=== PATIENT | female | born 2000 | race American Indian/Alaskan Native ===

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

== ENCOUNTER 2019-09-17 17:03 | Emergency (ER) | payer SELFPAY ==
--- NOTE | 2019-09-17 17:37 | Event Note ---
ED Screening Note Date of service: 09/17/19 Time: 17:34 ED Screening Note: This is a 18 y.o. F. that presents to the ER with urinary frequency, urgency, and pelvic pressure for 1 week. + vaginal discharge This initial assessment/diagnostic orders/clinical plan/treatment(s) is/are subject to change based on patients health status, clinical progression and re- assessment by fellow clinical providers in the ED. Further treatment and workup at subsequent clinical providers discretion. Patient/guardian urged not to elope from the ED as their condition may be serious if not clinically assessed and managed. Initial orders include: UA and test Pelvic exam
[2019-09-17 17:53] VITALS: BP 112/60
[2019-09-17 18:05] LABS: Bacteria,Urine 1+ /HPF (Negative); Bilirubin,Urine NEG (Negative); Blood,Urine NEG (Negative); Color,Urine Yellow (Yellow); Mucus,Urine 1+ /HPF; Urobilinogen,Urine < 2.0 mg/dL (<2.0)
[2019-09-17 18:07] LABS: HCG Qualitative,Urine Negative (Negative)
[2019-09-17] MEDS ORDERED: PHENAZOPYRIDINE 200 MG TAB PO ONE (19:58)
[2019-09-17] MEDS ORDERED: ACETAMINOPHEN 500 MG TAB PO ONE (19:58)
[2019-09-17] MEDS ORDERED: cephALEXin 500 MG CAP PO ONE (19:58)
--- NOTE | 2019-09-17 20:39 | Emergency Department Report ---
ED Female HPI - General Chief complaint: Urogenital-Female Stated complaint: URINE PAIN Time Seen by Provider: 09/17/19 17:34 Source: patient Mode of arrival: Ambulatory Limitations: No Limitations - History of Present Illness Initial comments: Patient is a nulliparous 18-year-old -[place] female with no past medical history who presents to the ED with complaint of acute onset persistent suprapubic pressure, dysuria, urinary frequency and urgency and low back pain for the last 2 weeks worse in the last 2 days. Patient denies vaginal bleeding, vaginal discharge, fever, chills, nausea, vomiting, diarrhea, dizziness, chest pain, abdominal pain, cough or sore throat. MD Complaint: dysuria, pelvic pain (suprapubic pressure; ), other (urinary urgency and frequency) -: Sudden, week(s) (2) Location: suprapubic (pressure) Radiation: non-radiating Severity: severe Severity scale (0 -10): 7 Quality: cramping, burning Consistency: intermittent Improves with: none Worsens with: urination Are you Now?: No Associated Symptoms: denies other symptoms, abdominal pain (suprapubic), loss of appetite, dysuria. denies: vaginal discharge, vaginal bleeding, nausea/vomiting, fever/chills - Related Data Sexually active: Yes : 0 Para: 0 A: 0 Previous Rx's Medication Instructions Recorded Last Taken Type Nitrofurantoin Monohyd/M-Cryst 100 mg PO BID #20 capsule 02/13/18 Unknown Rx [Macrobid 100 mg Capsule] Ibuprofen [Motrin] 600 mg PO Q8H PRN #21 tablet 09/17/19 Unknown Rx Ondansetron [Zofran Odt] 4 mg PO Q6HR PRN #15 tab.rapdis 09/17/19 Unknown Rx Phenazopyridine [Pyridium] 100 mg PO Q8H #21 tab 09/17/19 Unknown Rx cephALEXin [Keflex] 500 mg PO Q8HR #30 cap 09/17/19 Unknown Rx Allergies Allergy/AdvReac Type Severity Reaction Status Date / Time No Known Allergies Allergy Verified 02/13/18 04:41 ED Review of Systems ROS: Stated complaint: URINE PAIN Other details as noted in HPI Constitutional: denies: chills, fever Eyes: denies: eye pain, eye discharge, vision change ENT: denies: ear pain, throat pain Respiratory: denies: cough, shortness of breath, wheezing Cardiovascular: denies: chest pain, palpitations Endocrine: no symptoms reported Gastrointestinal: abdominal pain (suprapubic pressure). denies: nausea, vomiting, diarrhea Genitourinary: urgency, dysuria, frequency. denies: discharge Musculoskeletal: denies: back pain, joint swelling, arthralgia Skin: denies: rash, lesions Neurological: denies: headache, weakness, paresthesias Psychiatric: denies: anxiety, depression Hematological/Lymphatic: denies: easy bleeding, easy bruising ED Past Medical Hx - Past Medical History Previous Medical History?: Yes Hx Asthma: Yes - Surgical History Past Surgical History?: No - Social History Smoking Status: Never Smoker Substance Use Type: None - Medications Home Medications: Home Medications Medication Instructions Recorded Confirmed Last Taken Type Nitrofurantoin Monohyd/M-Cryst 100 mg PO BID #20 capsule 02/13/18 Unknown Rx [Macrobid 100 mg Capsule] Ibuprofen [Motrin] 600 mg PO Q8H PRN #21 tablet 09/17/19 Unknown Rx Ondansetron [Zofran Odt] 4 mg PO Q6HR PRN #15 tab.rapdis 09/17/19 Unknown Rx Phenazopyridine [Pyridium] 100 mg PO Q8H #21 tab 09/17/19 Unknown Rx cephALEXin [Keflex] 500 mg PO Q8HR #30 cap 09/17/19 Unknown Rx ED Physical Exam - General Limitations: No Limitations General appearance: alert, in no apparent distress - Head Head exam: Present: atraumatic, normocephalic, normal inspection - Eye Eye exam: Present: normal appearance, PERRL, EOMI Pupils: Present: normal accommodation - ENT ENT exam: Present: normal exam, normal orophraynx, mucous membranes moist, TM's normal bilaterally, normal external ear exam - Neck Neck exam: Present: normal inspection, full ROM. Absent: tenderness - Respiratory Respiratory exam: Present: normal lung sounds bilaterally. Absent: respiratory distress, wheezes, rales, rhonchi, stridor, chest wall tenderness, decreased breath sounds, prolonged expiratory - Cardiovascular Cardiovascular Exam: Present: regular rate, normal rhythm, normal heart sounds. Absent: systolic murmur, diastolic murmur, rubs, gallop - GI/Abdominal GI/Abdominal exam: Present: soft, normal bowel sounds. Absent: tenderness, guarding, hyperactive bowel sounds, hypoactive bowel sounds - Bi-manual exam: Present: other (Pelvic exam deferred, patient choice) - Extremities Exam Extremities exam: Present: normal inspection, full ROM, normal capillary refill - Back Exam Back exam: Present: normal inspection, full ROM. Absent: tenderness, CVA tenderness (R), muscle spasm, paraspinal tenderness - Neurological Exam Neurological exam: Present: alert, oriented X3, CN II-XII intact, normal gait, reflexes normal - Psychiatric Psychiatric exam: Present: normal affect, normal mood - Skin Skin exam: Present: warm, dry, intact, normal color. Absent: rash ED Course Vital Signs 09/17/19 09/17/19 17:52 20:17 Temperature 98.2 F Pulse Rate 70 Respiratory 18 18 Rate Blood Pressure 112/60 O2 Sat by Pulse 100 Oximetry ED Medical Decision Making - Medical Decision Making This is a nulliparous 18-year-old female who presented to the ED with persistent dysuria, urinary frequency and urgency, suprapubic pressure and low back pain. In the ED, patient is alert and oriented x3 and is not in any distress. Urinalysis showed significant urinary tract infection. Patient was treated in the ED with pain medications and antibiotics and discharged home on the same. Patient was advised to follow-up with her primary care physician or [facility] physician in 7 to 10 days for reevaluation or return to the ED immediately if symptoms get worse. - Differential Diagnosis UTI; Dysuria; ; PID; STD; Bacterial vaginosis; Ovarian cyst Critical care attestation.: If time is entered above; I have spent that time in minutes in the direct care of this critically ill patient, excluding procedure time. ED Disposition Clinical Impression: Acute urinary tract infection, Dysuria Disposition: - TO HOME OR SELFCARE Is pt being admited?: No Does the pt Need Aspirin: No Condition: Stable Instructions: Urinary Tract Infection in Women (ED), Dysuria (ED) Additional Instructions: Take medications with food, drink plenty of fluids and follow up with your Primary care Physician in 7-10 days for reevaluation. Return to the ED immediately if symptoms get worse. Prescriptions: cephALEXin [Keflex] 500 mg PO Q8HR #30 cap Ibuprofen [Motrin] 600 mg PO Q8H PRN #21 tablet PRN Reason: Pain Phenazopyridine [Pyridium] 100 mg PO Q8H #21 tab Ondansetron [Zofran Odt] 4 mg PO Q6HR PRN #15 tab.rapdis PRN Reason: Nausea Referrals: [facility] [Outside] - 3-5 Days Forms: Work/School Release Form(ED) Time of Disposition: 20:37 Print Language: SAO TOMEAN
== END 2019-09-17 20:52 | disposition home or self-care (01) ==
LOC: ED 17:03
DX: N39.0 Urinary tract infection, site not specified (principal); J45.909 Unspecified asthma, uncomplicated; Z79.899 Other long term (current) drug therapy
CPT/HCPCS: 81001; 81025; 87086; 99283

== ENCOUNTER 2020-01-30 12:43 | Emergency (ER) | payer SELFPAY ==
--- NOTE | 2020-01-30 14:17 | Event Note ---
ED Screening Note ED Screening Note: home preg test neg back and abd pain vag bleed pmh none never preg no bc This initial assessment/diagnostic orders/clinical plan/treatment(s) is/are subject to change based on patients health status, clinical progression and re- assessment by fellow clinical providers in the ED. Further treatment and workup at subsequent clinical providers discretion. Patient/guardian urged not to elope from the ED as their condition may be serious if not clinically assessed and managed. Initial orders include: ua ro preg
[2020-01-30 16:11] LABS: Bilirubin,Urine NEG (Negative); Blood,Urine LG (Negative); Color,Urine Yellow (Yellow); Mucus,Urine 3+ /HPF; Protein,Urine <15 mg/dL mg/dL (Negative); Urobilinogen,Urine < 2.0 mg/dL (<2.0)
[2020-01-30 16:20] LABS: HCG Qualitative,Urine Negative (Negative)
[2020-01-30 16:47] LABS: Hematocrit 38.6 % (30.3-42.9); Hemoglobin 12.3 gm/dl (10.1-14.3); Mean Corpuscular HGB Conc 32 % (30-34); Mean Corpuscular Volume 84 fl (79-97); Platelet Count 212 K/mm3 (140-440); Red Blood Count 4.58 M/mm3 (3.65-5.03); Red Cell Distribution Width 18.5 % (13.2-15.2)
[2020-01-30 17:09] LABS: BUN/Creatinine Ratio 17; Blood Urea Nitrogen 12 mg/dL (7-17); Calcium 9.3 mg/dL (8.4-10.2); Hemolysis Index 39
--- NOTE | 2020-01-30 17:39 | Emergency Department Report ---
ED Female HPI - General Chief complaint: Vaginal Bleeding Stated complaint: CRAMPING AND BLEEDING Time Seen by Provider: 01/30/20 13:43 Source: patient Mode of arrival: Ambulatory Limitations: No Limitations - History of Present Illness Initial comments: 19-year-old female presents to ED with vaginal bleeding. Patient states that she had her menstrual. Last week, states it lasted for approximately 7 days and ended on January 22. Patient states a couple days ago she began having vaginal bleeding again with occasional clots. She reports abdominal and back cramping as well. Patient reports negative test at home. MD Complaint: vaginal bleeding -: days(s) (3) Severity: mild Quality: cramping Consistency: intermittent Improves with: none Worsens with: none Are you Now?: No Associated Symptoms: abdominal pain. denies: vaginal discharge, nausea/vomiting, fever/chills, syncope, weakness - Related Data Sexually active: Yes Previous Rx's Medication Instructions Recorded Last Taken Type Nitrofurantoin Monohyd/M-Cryst 100 mg PO BID #20 capsule 02/13/18 Unknown Rx [Macrobid 100 mg Capsule] Ibuprofen [Motrin] 600 mg PO Q8H PRN #21 tablet 09/17/19 Unknown Rx Ondansetron [Zofran Odt] 4 mg PO Q6HR PRN #15 tab.rapdis 09/17/19 Unknown Rx Phenazopyridine [Pyridium] 100 mg PO Q8H #21 tab 09/17/19 Unknown Rx cephALEXin [Keflex] 500 mg PO Q8HR #30 cap 09/17/19 Unknown Rx Naproxen [Naprosyn] 500 mg PO BID #20 tablet 01/30/20 Unknown Rx Allergies Allergy/AdvReac Type Severity Reaction Status Date / Time No Known Allergies Allergy Verified 02/13/18 04:41 ED Review of Systems ROS: Stated complaint: CRAMPING AND BLEEDING Other details as noted in HPI Comment: All other systems reviewed and negative Gastrointestinal: abdominal pain Genitourinary: as per HPI ED Past Medical Hx - Past Medical History Hx Asthma: Yes - Social History Smoking Status: Light Tobacco Smoker Substance Use Type: Marijuana - Medications Home Medications: Home Medications Medication Instructions Recorded Confirmed Last Taken Type Nitrofurantoin Monohyd/M-Cryst 100 mg PO BID #20 capsule 02/13/18 Unknown Rx [Macrobid 100 mg Capsule] Ibuprofen [Motrin] 600 mg PO Q8H PRN #21 tablet 09/17/19 Unknown Rx Ondansetron [Zofran Odt] 4 mg PO Q6HR PRN #15 tab.rapdis 09/17/19 Unknown Rx Phenazopyridine [Pyridium] 100 mg PO Q8H #21 tab 09/17/19 Unknown Rx cephALEXin [Keflex] 500 mg PO Q8HR #30 cap 09/17/19 Unknown Rx Naproxen [Naprosyn] 500 mg PO BID #20 tablet 01/30/20 Unknown Rx ED Physical Exam - General Limitations: No Limitations General appearance: alert, in no apparent distress - Head Head exam: Present: atraumatic, normocephalic - Eye Eye exam: Present: normal appearance, EOMI - ENT ENT exam: Present: mucous membranes moist - Neck Neck exam: Present: normal inspection - Respiratory Respiratory exam: Present: normal lung sounds bilaterally. Absent: respiratory distress - Cardiovascular Cardiovascular Exam: Present: regular rate, normal rhythm - GI/Abdominal GI/Abdominal exam: Present: soft, tenderness (Mild suprapubic tenderness). Absent: distended - Extremities Exam Extremities exam: Present: normal inspection - Neurological Exam Neurological exam: Present: alert, oriented X3 - Psychiatric Psychiatric exam: Present: normal affect, normal mood - Skin Skin exam: Present: warm, dry, intact, normal color ED Course Vital Signs 01/30/20 01/30/20 01/30/20 13:38 14:16 17:44 Temperature 97.5 F L 98.4 F 97.7 F Pulse Rate 67 62 72 Respiratory 16 18 12 Rate Blood Pressure 97/54 Blood Pressure 97/54 103/53 [Left] O2 Sat by Pulse 100 100 100 Oximetry ED Medical Decision Making - Lab Data Result diagrams: 01/30/20 16:31 01/30/20 16:31 - Medical Decision Making 19-year-old female, likely with dysfunctional uterine bleeding. test is negative. Hemoglobin is within normal range. Blood pressure is low normal, however this is patient's baseline when looking back at previous ED visits. Patient has small body habitus as well. Patient advised to follow-up with gynecology. Will discharge home at this time. Return precautions given. - Differential Diagnosis , dysfunctional uterine bleeding Critical care attestation.: If time is entered above; I have spent that time in minutes in the direct care of this critically ill patient, excluding procedure time. ED Disposition Clinical Impression: Dysfunctional uterine bleeding Disposition: TO HOME OR SELFCARE Is pt being admited?: No Condition: Stable Instructions: Dysfunctional Uterine Bleeding (ED) Prescriptions: Naproxen [Naprosyn] 500 mg PO BID #20 tablet Referrals: VALENTINO HANDY MD [Staff Physician] - 3-5 Days [facility] [Provider Group] - 3-5 Days [facility] [Provider Group] - 3-5 Days Time of Disposition: 17:38
[2020-01-30 17:45] VITALS: BP 103/53
== END 2020-01-30 17:47 | disposition home or self-care (01) ==
LOC: ED 12:43
DX: N93.8 Other specified abnormal uterine and vaginal bleeding (principal); F17.200 Nicotine dependence, unspecified, uncomplicated; F12.10 Cannabis abuse, uncomplicated; J45.909 Unspecified asthma, uncomplicated; Z79.899 Other long term (current) drug therapy
CPT/HCPCS: 36415; 80048; 81001; 81025; 85027; 87086; 99283

== ENCOUNTER 2020-10-15 09:01 | Emergency (ER) | payer SELFPAY ==
[2020-10-15 09:09] VITALS: BP 110/60
--- NOTE | 2020-10-15 10:35 | Emergency Department Report ---
ED General Adult HPI - General Chief complaint: Urogenital-Female Stated complaint: VAGINAL PAIN Time Seen by Provider: 10/15/20 10:13 Source: patient Mode of arrival: Ambulatory Limitations: No Limitations - History of Present Illness Initial comments: 20-year-old -[place] female patient presents with complaints of itchy burning bumps to right labia x1 week. She reports that some of the bumps are draining clear yellowish fluid. Patient reports mild pain, but denies vaginal discharge, dysuria/hematuria/urinary frequency, dyspareunia, fever /chills/sweats, or history of herpes. Severity scale (0 -10): 7 - Related Data Previous Rx's Medication Instructions Recorded Last Taken Type Nitrofurantoin Monohyd/M-Cryst 100 mg PO BID #20 capsule 02/13/18 Unknown Rx [Macrobid 100 mg Capsule] Ibuprofen [Motrin] 600 mg PO Q8H PRN #21 tablet 09/17/19 Unknown Rx Ondansetron [Zofran Odt] 4 mg PO Q6HR PRN #15 tab.rapdis 09/17/19 Unknown Rx Phenazopyridine [Pyridium] 100 mg PO Q8H #21 tab 09/17/19 Unknown Rx cephALEXin [Keflex] 500 mg PO Q8HR #30 cap 09/17/19 Unknown Rx Naproxen [Naprosyn] 500 mg PO BID #20 tablet 01/30/20 Unknown Rx Valacyclovir HCl [Valacyclovir] 1,000 mg PO BID 10 Days #20 tablet 10/15/20 Unknown Rx Allergies Allergy/AdvReac Type Severity Reaction Status Date / Time No Known Allergies Allergy Verified 02/13/18 04:41 ED Review of Systems ROS: Stated complaint: VAGINAL PAIN Other details as noted in HPI Constitutional: denies: chills, fever, malaise Genitourinary: denies: urgency, dysuria, frequency, hematuria, discharge, abnormal menses, dyspareunia Skin: rash. denies: change in color Hematological/Lymphatic: denies: swollen glands ED Past Medical Hx - Past Medical History Hx Asthma: Yes - Social History Smoking Status: Light Tobacco Smoker Substance Use Type: Marijuana - Medications Home Medications: Home Medications Medication Instructions Recorded Confirmed Last Taken Type Nitrofurantoin Monohyd/M-Cryst 100 mg PO BID #20 capsule 02/13/18 Unknown Rx [Macrobid 100 mg Capsule] Ibuprofen [Motrin] 600 mg PO Q8H PRN #21 tablet 09/17/19 Unknown Rx Ondansetron [Zofran Odt] 4 mg PO Q6HR PRN #15 tab.rapdis 09/17/19 Unknown Rx Phenazopyridine [Pyridium] 100 mg PO Q8H #21 tab 09/17/19 Unknown Rx cephALEXin [Keflex] 500 mg PO Q8HR #30 cap 09/17/19 Unknown Rx Naproxen [Naprosyn] 500 mg PO BID #20 tablet 01/30/20 Unknown Rx Valacyclovir HCl [Valacyclovir] 1,000 mg PO BID 10 Days #20 tablet 10/15/20 Unknown Rx ED Physical Exam - General Limitations: No Limitations General appearance: alert, in no apparent distress - Head Head exam: Present: atraumatic, normocephalic - Eye Eye exam: Present: normal appearance - Respiratory Respiratory exam: Absent: respiratory distress - Cardiovascular Cardiovascular Exam: Present: regular rate - Expanded Exam Expanded Female exam: Present: herpetic lesions (Noted to right lower labia with scattered vesicles) - Extremities Exam Extremities exam: Present: full ROM - Back Exam Back exam: Present: full ROM - Neurological Exam Neurological exam: Present: alert, oriented X3, normal gait - Psychiatric Psychiatric exam: Present: normal affect, normal mood - Skin Skin exam: Present: warm, dry, intact, normal color. Absent: rash ED Course Vital Signs 10/15/20 09:07 Temperature 98.0 F Pulse Rate 91 H Respiratory 20 Rate Blood Pressure 110/60 [Right] O2 Sat by Pulse 99 Oximetry ED Medical Decision Making - Medical Decision Making 20-year-old -[place] female patient presents with complaints of itchy burning bumps to right labia x1 week. She reports that some of the bumps are draining clear yellowish fluid. Patient reports mild pain, but denies vaginal d ischarge, dysuria/hematuria/urinary frequency, dyspareunia, fever/chills/sweats, or history of herpes. Genital herpes noted on exam. Discussed diagnosis with patient. Valacyclovir prescription given. Recommend follow-up with primary care in 3 to 5 days. Discussed signs and symptoms that should prompt immediate return to the emergency department in detail with patient who verbalizes understanding. She is well-appearing, her vitals are normal, and she is stable for discharge home. Critical care attestation.: If time is entered above; I have spent that time in minutes in the direct care of this critically ill patient, excluding procedure time. ED Disposition Clinical Impression: Genital herpes Qualifiers: Herpes simplex infection site: vulvovaginitis Qualified Code(s): A60.04 - Herpesviral vulvovaginitis Disposition: TO HOME OR SELFCARE Is pt being admited?: No Condition: Stable Instructions: Genital Herpes Prescriptions: Valacyclovir HCl [Valacyclovir] 1,000 mg PO BID 10 Days #20 tablet Referrals: [facility] [Provider Group] - 3-5 Days
== END 2020-10-15 10:42 | disposition home or self-care (01) ==
LOC: ED 09:01
DX: A60.04 Herpesviral vulvovaginitis (principal); J45.909 Unspecified asthma, uncomplicated; F17.200 Nicotine dependence, unspecified, uncomplicated; F12.90 Cannabis use, unspecified, uncomplicated; Z79.899 Other long term (current) drug therapy
CPT/HCPCS: 99281